=== PATIENT | female | born 1995 | race Hispanic/Latino ===

== ENCOUNTER 2023-05-23 14:30 | Observation (INO) | payer MEDICAID ==
[~2023-05-23] VITALS: Ht 162.6 cm; Wt 83.9 kg
[2023-05-23 14:31] VITALS: BP 132/83; PULSE 117; RESP 18
== END 2023-05-23 15:55 | disposition home or self-care (01) ==
LOC: EDH 14:30 → LDH 14:51
PROVIDERS: ADMIT Obstetrics & Gynecology; ATTEND Obstetrics & Gynecology
DX: O21.2 Late vomiting of pregnancy (principal); O24.410 Gestational diabetes mellitus in pregnancy, diet controlled; O26.892 Other specified pregnancy related conditions, second trimester; O99.322 Drug use complicating pregnancy, second trimester; R10.9 Unspecified abdominal pain; R42 Dizziness and giddiness; F12.90 Cannabis use, unspecified, uncomplicated; Z3A.28 28 weeks gestation of pregnancy; Z3A.25 25 weeks gestation of pregnancy; Z79.4 Long term (current) use of insulin
CPT/HCPCS: G0379; G0378; 59025

== ENCOUNTER 2023-06-17 18:05 | Observation (INO) | payer MEDICAID ==
[~2023-06-17] VITALS: Ht 154.9 cm; Wt 83.9 kg
[2023-06-17 18:17] VITALS: BP 122/86; PULSE 125; RESP 20
[2023-06-17 19:03] LABS: APPEARANCE,URINE TURBID (CLEAR); BILIRUBIN,URINE NEGATIVE (NEGATIVE); COLOR,URINE YELLOW (YELLOW); GLUCOSE, URINE (UA) 500 mg/dL (NEGATIVE); KETONES,URINE 100 mg/dL (NEGATIVE); LEUKOCYTE ESTERASE ,URINE 500 Leu/uL (NEGATIVE); NITRATE,URINE NEGATIVE (NEGATIVE); PROTEIN,URINE 100 mg/dL (NEGATIVE)
[2023-06-17 19:04] LABS: ADD UA MICROSCOPIC YES
[2023-06-17 19:07] LABS: AMPHET/METH SCREEN,URINE NEGATIVE (NEGATIVE); BARBITURATE SCREEN, URINE NEGATIVE (NEGATIVE); BENZODIAZEPINES SCREEN,URINE NEGATIVE (NEGATIVE); CANNABINOID SCREEN,URINE POSITIVE (NEGATIVE); COCAINE SCREEN,URINE NEGATIVE (NEGATIVE); OPIATE SCREEN,URINE NEGATIVE (NEGATIVE); PHENCYCLIDINE SCREEN,URINE NEGATIVE (NEGATIVE)
[2023-06-17 19:12] LABS: BACTERIA,URINE MANY /HPF (None Seen); MUCUS,URINE FEW LPF (None Seen); SQUAMOUS EPITHELIAL CELL,UR MANY /HPF (0-2); TRANSITIONAL EPI CELLS,URINE RARE /HPF (None Seen); WBC,URINE 26-50 /HPF (0-1)
[2023-06-17 20:39] LABS: INFLUENZA TYPE A Negative For Type A (NEGATIVE); INFLUENZA TYPE B Negative For Type B (NEGATIVE)
[2023-06-17] MEDS ORDERED: AMPICILLIN 1GM+NS 50ML IV SCH (21:00)
[2023-06-17] MEDS ORDERED: INSULIN HUMULIN R 100 UNIT/ML 3ML SQ PRN (21:00)
== END 2023-06-17 21:32 | disposition home or self-care (01) ==
LOC: EDH 18:05 → LDH 18:06 → EDH 18:28
PROVIDERS: ADMIT Obstetrics & Gynecology; ATTEND Obstetrics & Gynecology
DX: O26.893 Other specified pregnancy related conditions, third trimester (principal); R10.9 Unspecified abdominal pain; R06.02 Shortness of breath; Z20.822 Contact with and (suspected) exposure to COVID-19; O99.891 Other specified diseases and conditions complicating pregnancy; M54.9 Dorsalgia, unspecified; O21.2 Late vomiting of pregnancy; O99.323 Drug use complicating pregnancy, third trimester; F12.90 Cannabis use, unspecified, uncomplicated; Z3A.28 28 weeks gestation of pregnancy
CPT/HCPCS: 96360; 80305; 87077; 87088; 87186; 87804 ×2; 82948; 87426; 81001; G0378 ×3; G0379; J0290; J1815; J7120 ×2